=== PATIENT | female | born 1930 | race Caucasian/White ===

== ENCOUNTER 2017-03-04 08:25 | Day surgery (SDC) | payer MEDICARE, BC ==
[2017-03-04] VITALS (12 sets, daily range): BP systolic 107–157; BP diastolic 44–80; PULSE 58–93; TEMP 98–98.6
[~2017-03-04] VITALS: Ht 160.1 cm; Wt 53.0 kg
[2017-03-04] MEDS ORDERED: ASPIRIN E.C. 8181 MG PO (09:04)
[2017-03-04] MEDS ORDERED: BIOTIN5000 MCG PO (09:05)
[2017-03-04] MEDS ORDERED: SYNTHROID0.1 MG/TAB PO (09:05)
[2017-03-04] MEDS ORDERED: EPA FISH OIL1 SGL PO (09:06)
[2017-03-04] MEDS ORDERED: VITAMIN D 400400 IU PO (09:06)
[2017-03-04] MEDS ORDERED: PRINIVIL10 MG PO (09:07)
[2017-03-04] MEDS ORDERED: MEVACOR40 MG PO (09:07)
[2017-03-04] MEDS ORDERED: LUTEIN20 M1 PO (09:08)
[2017-03-04 09:09] LABS: HEMATOCRIT 40.5 % (37.0-47.0); HEMOGLOBIN 13.2 g/dl (12.5-16.0); MEAN CELL VOLUME 92 fl (80.0-100.0); MEAN CORPUSCULAR HEMOGLOBIN 30 pg (27.0-31.0); MEAN CORPUSCULAR HGB CONC 33 g/dl (33.0-37.0); MEAN PLATELET VOLUME 10.9 fl (7.4-10.4); PLATELET COUNT 229 K/mm3 (130-400); RED BLOOD COUNT 4.39 M/mm3 (4.10-5.30); REDCELL DISTRIBUTION WIDTH-CV 14.3 % (11.5-14.5); WHITE BLOOD COUNT 10.3 K/mm3 (4.8-10.8)
[2017-03-04] MEDS ORDERED: MULTI VITAMINS1 TAB PO (09:09)
[2017-03-04] MEDS ORDERED: PAXIL 30MG30 MG PO (09:10)
[2017-03-04 09:12] LABS: PROTHROMBIN TIME 11.2 SECONDS (9.7-12.8)
[2017-03-04 09:22] LABS: CALCIUM 9.6 mg/dL (8.4-10.2); CREATININE, serum 0.67 mg/dL (0.52-1.25); POTASSIUM 3.5 mmol/L (3.4-5.0)
[2017-03-04] MEDS ORDERED: TOPROL XL 25MG25 MG PO (09:33)
== END 2017-03-04 15:32 | disposition home or self-care (01) ==
LOC: EUO 08:25
PROVIDERS: Internal Medicine Cardiovascular Disease
DX: I25.10 Atherosclerotic heart disease of native coronary artery without angina pectoris (principal); I50.20 Unspecified systolic (congestive) heart failure; E78.00 Pure hypercholesterolemia, unspecified; E03.9 Hypothyroidism, unspecified; I42.9 Cardiomyopathy, unspecified; I44.7 Left bundle-branch block, unspecified
CPT/HCPCS: C1769; J1644; J2250; J3010

== ENCOUNTER 2017-07-15 07:58 | Day surgery (SDC) | payer MEDICARE, BC ==
[2017-07-15] VITALS (9 sets, daily range): BP systolic 125–152; BP diastolic 41–98; PULSE 44–78; TEMP 97.4–98.2
[~2017-07-15] VITALS: Ht 160.1 cm; Wt 51.0 kg
[~2017-07-15 07:58] MED LIST: ASPIRIN E.C. 8181 MG PO; BIOTIN5000 MCG PO; COLACE 100100 MG/CAP PO; COREG 3.123.125 MG/T PO; COREG 6.256.25 MG/TA PO; EPA FISH OIL1 SGL PO; LASIX 20MG TABL20 MG PO; LUTEIN20 M1 PO; MEVACOR40 MG PO; MIRALAX238G PO; MULTI VITAMINS1 TAB PO; PAXIL 30MG30 MG PO; PRINIVIL10 MG PO; SYNTHROID0.1 MG/TAB PO; TOPROL XL 25MG25 MG PO; VITAMIN D 400400 IU PO
[2017-07-15] MEDS ORDERED: PRILOSEC 20MG20 MG PO (08:28)
[2017-07-15 08:44] LABS: HEMATOCRIT 40.1 % (37.0-47.0); HEMOGLOBIN 13.1 g/dl (12.5-16.0); MEAN CELL VOLUME 92 fl (80.0-100.0); MEAN CORPUSCULAR HEMOGLOBIN 30 pg (27.0-31.0); MEAN CORPUSCULAR HGB CONC 33 g/dl (33.0-37.0); PLATELET COUNT 71 K/mm3 (130-400); RED BLOOD COUNT 4.36 M/mm3 (4.10-5.30); REDCELL DISTRIBUTION WIDTH-CV 14.1 % (11.5-14.5)
[2017-07-15 09:00] LABS: CALCIUM 9.6 mg/dL (8.4-10.2); CREATININE, serum 0.87 mg/dL (0.52-1.25); POTASSIUM 4.3 mmol/L (3.4-5.0)
[2017-07-15 09:16] LABS: INR 1.1 (0.8-3.0); PROTHROMBIN TIME 12.3 SECONDS (9.7-12.8)
[2017-07-16 02:30] VITALS: BP 122/49; PULSE 61; TEMP 97.7
[2017-07-16 06:22] VITALS: BP 151/58; PULSE 65; TEMP 98.4
[2017-07-16] MEDS ORDERED: CEPHALEXIN500 M1 PO (09:20)
[2017-07-16 09:25] VITALS: BP 119/43; PULSE 67; TEMP 97.9
== END 2017-07-16 10:07 | disposition home or self-care (01) ==
LOC: COL.CAR 07:58 → SURG 13:00 → COL.CAR 07-16 10:07
PROVIDERS: Internal Medicine Cardiovascular Disease
DX: I42.8 Other cardiomyopathies (principal); I45.4 Nonspecific intraventricular block; I25.10 Atherosclerotic heart disease of native coronary artery without angina pectoris; I11.0 Hypertensive heart disease with heart failure; I50.22 Chronic systolic (congestive) heart failure; F41.1 Generalized anxiety disorder; E78.00 Pure hypercholesterolemia, unspecified; E03.9 Hypothyroidism, unspecified; M81.0 Age-related osteoporosis without current pathological fracture; Z90.710 Acquired absence of both cervix and uterus; Z79.82 Long term (current) use of aspirin; Z82.49 Family history of ischemic heart disease and other diseases of the circulatory system
CPT/HCPCS: OP; C1769; C1777; C1882; C1894; C1898; C1900; J0690; J2250; J3010; J7030; J7040; Q9967